=== PATIENT | male | born 1960 | race Caucasian/White ===

== ENCOUNTER → 2022-10-05 12:03 | Day surgery (SDC) | payer MEDICARE, MEDICAID, SELFPAY ==
[2022-10-05 12:48] VITALS: BMI 25.9
[2022-10-05 12:57] VITALS: BP 95/69; PULSE 79; RESP 20; TEMP 36.9; O2SAT 96
[2022-10-05] MEDS: Lactated Ringers 1,000 ML 50 ML IVCONT (13:24)
--- NOTE | 2022-10-05 13:24 | HO.ANESPROP2 ---
HPI - Anesthesia Eval Consult details Narrative: 62 yo male patient for fiberoptic bronchoscopy with biopsy. While talking to patient, HR increased to 140s and patient felt hot and flushed. Unable to ascertain rhythm but P waves do not appear to be always present. Will obtain 12 lead EKG. PMFSH Past Medical History Medical History Abnormal liver function Chronic back pain Chronic hip pain COPD (chronic obstructive pulmonary disease) Depression screening H/O ETOH abuse Hematochezia Prostate troubles Tobacco use Family History Family history of problems with anesthesia: No Surgical History Surgical History (Updated 10/05/22 @ 14:37 by Theodora Bains MD) H/O foot surgery History of Problems with Anesthesia: Yes (Difficulty breathing waking up from anesthesia. Needed oxygen ) Social History Social History Patient Tobacco Use Status: Current everyday Tobacco user Tobacco use type: Cigarette Cigarettes Per Day: 7 Use of substances other than those prescribed or required for medical reasons: No Are you DNR?: No Advance Directives: No Advance Directives Information Provided: Yes Recently lost weight without trying: No Nutrition Risks: No Nutritional Risk Meds Allergies Allergy/AdvReac Type Severity Reaction Status Date / Time Penicillins [PCN] Allergy Unknown Verified 10/04/22 10:47 Active Medications: Current Medications Lactated Ringer's (Lr) 1,000 mls @ 50 mls/hr IVCONT .Q20H STEVE Last Admin: 10/05/22 13:24 Dose: 50 mls/hr Home Medications Medication Instructions Recorded Confirmed Last Taken Type acetylcysteine 600 mg capsule 600 mg PO BID 10/04/22 10/04/22 Unknown History albuterol sulfate 90 mcg/actuation 2 puff inhalation Q3H PRN dyspnea 10/04/22 10/04/22 10/05/22 History aerosol inhaler (Ventolin HFA) azithromycin 250 mg tablet 250 mg PO DAILY 10/04/22 10/04/22 Unknown History budesonide-formoterol HFA 160 2 puff inhalation BID 10/04/22 10/04/22 10/05/22 History mcg-4.5 mcg/actuation aerosol inhaler (Symbicort) cholecalciferol (vitamin D3) 50 50 mcg PO DAILY 10/04/22 10/04/22 Unknown History mcg (2,000 unit) capsule fluticasone propionate 50 1 spray intranasal DAILY 10/04/22 10/04/22 10/05/22 History mcg/actuation nasal spray,suspension ipratropium 20 mcg-albuterol 100 1 puff inhalation 8XD sob 10/04/22 10/05/22 10/05/22 History mcg/actuation mist for inhalation (Combivent Respimat) lisinopril 2.5 mg tablet 2.5 mg PO DAILY 10/04/22 10/04/22 Unknown History metoprolol succinate 25 mg 25 mg PO DAILY 10/04/22 10/04/22 10/05/22 History tablet,extended release 24 hr nicotine 21 mg/24 hr daily 1 patch topical DAILY 10/04/22 10/04/22 Unknown History transdermal patch prednisone 10 mg tablet 10 mg PO BID 10/04/22 10/04/22 Unknown History roflumilast 500 mcg tablet mcg PO 10/04/22 10/05/22 History tiotropium bromide 18 mcg capsule 1 cap inhalation DAILY 10/04/22 10/04/22 10/05/22 History with inhalation device (Spiriva with HandiHaler) topiramate 25 mg tablet 25 mg PO BID 10/04/22 10/04/22 10/05/22 History Exam Exam Date and Time: October 05, 2022 1324 Height,Weight and Vital Signs: Height 5 ft 9 in Weight 79.832 kg Last Vital Signs Temp 98.5 F 10/05/22 12:57 Pulse 79 10/05/22 12:57 Resp 20 10/05/22 12:57 BP 95/69 10/05/22 12:57 Pulse Ox 96 10/05/22 12:57 O2 Del Method Room Air 10/05/22 12:57 Airway Mallampati Class: II TM Dist: >3cm Neck ROM: Full Loose/Missing/Broken Teeth: No (Denies broken, loose, missing teeth) Heart: Irregularly irregular Lungs: CTAB. Diminished Assessment and Plan Assessment Anesthesia Assessment: Anesthesia Plan Discussed and Chart Reviewed Final Anesthetic Review Family History of Problems with Anesthesia: No History of Problems with Anesthesia: Yes (Difficulty breathing waking up from anesthesia. Needed oxygen ) NPO: Yes ASA Class: III Final Preanesthetic Review: No Changes in Pt Med Stat, Meds/Allgs Chart Reviewed, Consent Obtained/Reviewed and Anes Risks/Benef Reviewed Patient Risk: Intermediate Procedure Risk: Low Assessment/Block/Sedation in SS: Assess/Block/Sedation-SS Anesthetic Plan Anesthetic Plan: GA Disposition: Standard PACU
--- NOTE | 2022-10-05 13:39 | ECG_ITS ---
Test Reason : PREOP Blood Pressure : / mmHG Vent. Rate : 099 BPM Atrial Rate : 000 BPM P-R Int : 000 ms QRS Dur : 092 ms QT Int : 338 ms P-R-T Axes : 000 109 010 degrees QTc Int : 433 ms Atrial fibrillation Rightward axis Possible Anterior infarct , age undetermined Abnormal ECG When compared with ECG of 24-JUL-2011 09:14, Atrial fibrillation has replaced Sinus rhythm QRS axis Shifted right Borderline criteria for Anterior infarct are now Present Nonspecific T wave abnormality now evident in Inferior leads Referred By: Theodora Bains Electronically Signed By:Kristopher Chairez
--- NOTE | 2022-10-05 13:40 | PC.NURSE ---
WHILE PATIENT WAS SITTING UP IN BED AT REST HIS HEART RATE INCREASED TO 142 ST. DENIES CP. PATIENT FELT LIKE HE GOT REALLY HOT WHILE HE WAS AT REST IN ST. NONDIAPHORETIC. ALERT AND AWAKE. EKLG CALLED TO BE DONE BY THE BEDSIDE. MD MCMILLAN BY BEDSIDE WHEN PATIENT WAS HAVING HIS ST EPISODE/.
[2022-10-05 13:42] VITALS: BP 101/67; PULSE 104; RESP 20; O2SAT 96
--- NOTE | 2022-10-05 13:44 | MHC.SHP ---
Pre-Procedural Eval Section A Date of Service: 10/05/22 The patient is an INPATIENT: No Section B Chief Complaint: Solitary pulmonary nodule Allergies: Allergies Allergy/AdvReac Type Severity Reaction Status Date / Time Penicillins [PCN] Allergy Unknown Verified 10/04/22 10:47 Plan I have reviewed the history and physical and performed a pertinent physical examination on my patient. No changes have occurred unless specified. Plan for bronchoscopy with biopsy. Discussed risks, benefits, and alternatives with the patient which he understood and agreed to proceed. Time Spent With Patient Time: Total time managing care of this patient today ____ minutes.
--- NOTE | 2022-10-05 14:19 | PC.NURSE ---
PATIENT IS NEW ONSET AFIB. ASYMPTOMATIC A THIS TIME. DOC TO DOC REPORT IS TO OCCUR. CALLED ER FOR TRANSFER AWAITING FOR CALL BACK.
--- NOTE | 2022-10-05 14:25 | PC.NURSE ---
PATIENT WAS SITTING UP IN BED AND THEN HAD A FLUSHED FACE AND FELT WARM AND HIS HEART RATE WENT UP TO 136 A-FIB. THEN HEART RATE DECREASED AND HE NO LONGER FELT SYMPTOMATIC WITH FLUSHING FEELING ONLY. REMAINS ALERT AND AWAKE. GAVE NURSE TO NURSE REPORT TO JEANETTE QUILES. TO GO TO BED 4.
--- NOTE | 2022-10-05 14:37 | PC.NURSE ---
OFF UNIT TO ER MONITORED. DOC TO DOC PERFORMED.
== END ==
PROVIDERS: PCP Nurse Practitioner Family; Visit Provider Surgery
DX: R91.1 Solitary pulmonary nodule (principal); Z53.09 Procedure and treatment not carried out because of other contraindication; I48.91 Unspecified atrial fibrillation
CPT/HCPCS: 93005; J0171

== ENCOUNTER 2022-10-05 14:52 | Emergency (ER) | payer MEDICARE, MEDICAID, SELFPAY ==
[2022-10-05 14:58] VITALS: BP 113/67; PULSE 78; RESP 18; TEMP 36.8; O2SAT 96; BMI 25.9
--- NOTE | 2022-10-05 14:58 | ECG_ITS ---
Test Reason : AFIB Blood Pressure : / mmHG Vent. Rate : 076 BPM Atrial Rate : 076 BPM P-R Int : 162 ms QRS Dur : 082 ms QT Int : 368 ms P-R-T Axes : 078 112 047 degrees QTc Int : 414 ms Normal sinus rhythm Possible Left atrial enlargement Right axis deviation Septal infarct (cited on or before 05-OCT-2022) Abnormal ECG When compared with ECG of 05-OCT-2022 13:51, Sinus rhythm has replaced Atrial fibrillation Questionable change in initial forces of Anterior leads Nonspecific T wave abnormality no longer evident in Inferior leads Referred By: Generic ED Physician Electronically Signed By:Kristopher Chairez
--- NOTE | 2022-10-05 15:18 | ED_ITS ---
HPI - Arrhythmia/Palpitations General Chief Complaint: Arrhythmia/Palpitations Stated Complaint: AFib? Time Seen by Provider: 10/05/22 15:17 Source: patient and other Mode of arrival: ambulatory Limitations: no limitations History of Present Illness HPI narrative: 62 yo male with history of COPD, active smoker, with a newly diagnosed lung mass who presents to the ER from Short Stay Surgery for evaluation of new onset rapid atrial fibrillation. Patient was due to get a bronchoscopy today by Dr. Isbell when EKG done pre-op showed atrial fibrillation, HR 99. He was flushed at the time. Not short of breath or having any chest pain. This has resolved. He was brought to the ER where he was found to be back in normal sinus rhythm. HR 80s. BP 110/60s. He was asymptomatic. He states about 5 years ago he used to drink alcohol when he had a similar experience. He states he went MD complaint: atrial fibrillation Onset (ago): minute(s) Duration: now resolved Severity: moderate Associated symptoms: denies other symptoms Related Data Home Medications Medication Instructions Recorded Confirmed acetylcysteine 600 mg capsule 600 mg PO BID 10/04/22 10/04/22 albuterol sulfate 90 mcg/actuation 2 puff inhalation Q3H PRN dyspnea 10/04/22 10/04/22 aerosol inhaler (Ventolin HFA) azithromycin 250 mg tablet 250 mg PO DAILY 10/04/22 10/04/22 budesonide-formoterol HFA 160 2 puff inhalation BID 10/04/22 10/04/22 mcg-4.5 mcg/actuation aerosol inhaler (Symbicort) cholecalciferol (vitamin D3) 50 50 mcg PO DAILY 10/04/22 10/04/22 mcg (2,000 unit) capsule fluticasone propionate 50 1 spray intranasal DAILY 10/04/22 10/04/22 mcg/actuation nasal spray,suspension ipratropium 20 mcg-albuterol 100 1 puff inhalation 8XD sob 10/04/22 10/05/22 mcg/actuation mist for inhalation (Combivent Respimat) lisinopril 2.5 mg tablet 2.5 mg PO DAILY 10/04/22 10/04/22 metoprolol succinate 25 mg 25 mg PO DAILY 10/04/22 10/04/22 tablet,extended release 24 hr nicotine 21 mg/24 hr daily 1 patch topical DAILY 10/04/22 10/04/22 transdermal patch prednisone 10 mg tablet 10 mg PO BID 10/04/22 10/04/22 roflumilast 500 mcg tablet mcg PO 10/04/22 tiotropium bromide 18 mcg capsule 1 cap inhalation DAILY 10/04/22 10/04/22 with inhalation device (Spiriva with HandiHaler) topiramate 25 mg tablet 25 mg PO BID 10/04/22 10/04/22 Previous Rx's Medication Instructions Recorded metoprolol succinate 25 mg 25 mg PO DAILY #30 tabs 10/05/22 tablet,extended release 24 hr Allergies Allergy/AdvReac Type Severity Reaction Status Date / Time Penicillins [PCN] Allergy Unknown Verified 10/04/22 10:47 Review of Systems Review of Systems: Yes all other systems are reviewed and are negative [facility] Past Medical History Medical History Abnormal liver function Chronic back pain Chronic hip pain COPD (chronic obstructive pulmonary disease) Depression screening H/O ETOH abuse Hematochezia Prostate troubles Tobacco use Surgical History (Updated 10/05/22 @ 14:37 by Thoedora Bains MD) H/O foot surgery Social History Social History Patient Tobacco Use Status: Current everyday Tobacco user Tobacco use type: Cigarette Cigarettes Per Day: 7 Advance Directives: No Advance Directives Information Provided: Yes Physical Exam Vital Signs: Vital Signs: Last Vital Signs Temp 98.2 F 10/05/22 14:58 Pulse 78 10/05/22 14:58 Resp 18 10/05/22 14:58 BP 113/67 10/05/22 14:58 Pulse Ox 96 10/05/22 14:58 O2 Del Method Room Air 10/05/22 14:58 BMI result Body Mass Index 25.9 Appearance: Alert. Oriented X3. No acute distress. Head: normocephalic, atraumatic. Eyes: Pupils equal, round and reactive to light. ENT: Pharynx normal. No tonsillar swelling or exudate. Neck: Normal inspection. Neck supple. CVS: Normal heart rate and rhythm. Pulses normal. Respiratory: No respiratory distress. Breath sounds normal. Abdomen: Soft and nontender. +BS x4 Skin: Skin warm and dry. Normal skin color. Normal skin turgor. No rashes. Extremities: No lower extremity edema. No joint swelling. Neuro/psych: Oriented X 3. No motor deficit. No sensory deficit. CN II-XII intact. Normal speech and cognition. Course Reevaluation(s) Reevaluation #1: Remains in sinus rhythm. Seen by Cardiology. Stable for discharge home. Will not start anticoagulation did not his hemoptysis Medical Decision Making Medical Decision Making [facility] Narrative: 62-year-old male with history of COPD, lung mass was given get bronchoscopy today found to be in new onset rapid AFib. He cardioverted on his own and is normal sinus rhythm on arrival to the ER. He is hemodynamically stable and symptom-free. He states when he felt himself going to AFib he felt ?flushed. ? no chest pain or shortness of breath time. Patient was seen and evaluated by Cardiology in the emergency department by - recommending no anticoagulation given recent hemoptysis, stopping the low-dose lisinopril and increase thing the Toprol XL to 25 mg b.i.d.. This was discussed with the patient in detail, all questions were answered. Additional prescription for his Toprol XL was sent to his pharmacy. He will follow up with Cardiology in the office, thoracic surgery for rescheduling his bronchoscopy. He is due for a PET scan as an outpatient as well. He is stable for discharge home. Return precautions were discussed. Differential Diagnosis Differential Diagnoses: The differential diagnosis associated with the presentation includes Paroxysmal rapid AFib, SVT, multifocal atrial tachycardia, sinus tachycardia Admission/Observation Consideration of admission/observation: Escalation of care including admission/observation considered Considered admission given new onset AFib, however patient spontaneously cardioverted, no role for anticoagulation given his pre-existing condition, has outpatient follow-up. Stable for discharge home. Consult Healthcare Provider Management of the patient was discussed with: Base Ply Hand Dr. Chairez Lab Data [facility] Lab Attestation statement: I reviewed the patient's lab results. Normal electrolytes, troponins negative, not anemic 10/05/22 15:12 10/05/22 15:12 Labs: Lab Results 10/05/22 10/05/22 10/05/22 Range/Units 15:12 15:12 15:12 WBC 8.1 (4.8-10.8) X10*3/uL RBC 4.75 (4.60-5.80) X10*6/uL Hgb 14.6 (14.0-18.0) g/dl Hct 44.0 (42.0-52.0) % MCV 92.6 (80.0-98.0) fL MCH 30.7 (27.0-33.0) pg MCHC 33.2 (31.0-36.0) g/dl RDW 12.6 (11.0-16.0) % Plt Count 227 (160-400) X10*3/uL MPV 9.2 L (9.4-12.4) fL Absolute Nucleated RBC 0.000 (0.0-0.012) X10*3/uL Nucleated RBC % (auto) 0.0 (0.0-0.2) /100WBC Sodium 142 (135-145) mmol/L Potassium 4.4 (3.3-5.1) mmol/L Chloride 105 (96-108) mmol/L Carbon Dioxide 29 (22-29) mmol/L Anion Gap 12 (12-20) BUN 11 (9-16) mg/dL Creatinine 0.72 (0.5-1.4) mg/dL Estim Creat Clear Calc 105.0 Estimated GFR > 60 Random Glucose 85 (60-115) mg/dL Calcium 9.5 (8.4-10.2) mg/dL Phosphorus 3.0 (2.7-4.5) mg/dL Magnesium 2.1 (1.6-2.6) mg/dL Troponin I High Sens < 2.7 (<3.5-35.0) ng/L B-Natriuretic Peptide (<100) pg/mL TSH 1.59 (0.32-4.0) uIU/mL COVID-19 ([facility]) (Negative) COVID-19 Clin Com 10/05/22 10/05/22 Range/Units 15:12 15:12 WBC (4.8-10.8) X10*3/uL RBC (4.60-5.80) X10*6/uL Hgb (14.0-18.0) g/dl Hct (42.0-52.0) % MCV (80.0-98.0) fL MCH (27.0-33.0) pg MCHC (31.0-36.0) g/dl RDW (11.0-16.0) % Plt Count (160-400) X10*3/uL MPV (9.4-12.4) fL Absolute Nucleated RBC (0.0-0.012) X10*3/uL Nucleated RBC % (auto) (0.0-0.2) /100WBC Sodium (135-145) mmol/L Potassium (3.3-5.1) mmol/L Chloride (96-108) mmol/L Carbon Dioxide (22-29) mmol/L Anion Gap (12-20) BUN (9-16) mg/dL Creatinine (0.5-1.4) mg/dL Estim Creat Clear Calc Estimated GFR Random Glucose (60-115) mg/dL Calcium (8.4-10.2) mg/dL Phosphorus (2.7-4.5) mg/dL Magnesium (1.6-2.6) mg/dL Troponin I High Sens (<3.5-35.0) ng/L B-Natriuretic Peptide 40 (<100) pg/mL TSH (0.32-4.0) uIU/mL COVID-19 ([facility]) Negative (Negative) COVID-19 Clin Com See Note Independent Interpretation I performed an independent interpretation of an: EKG Interpretation: EKG @ 15:02 - normal sinus rhythm, ventricular rate 76 beats per minute, no ST segment elevations or depressions. Normal [place] interval. EKG @ 13:51 - atrial fibrillation, ventricular rate 99 beats per minute, no P waves appreciated. No ST segment elevations or depressions. Independent Historian Clinical information obtained from an independent historian. History obtained from or confirmed by: Spouse Prescription Management I considered prescription management with: Other (betablocker) Chronic Conditions Patient?s care impacted by: Other (COPD, smoker) Critical Care Time Critical Care Time Critical Care Time: No Discharge Plan Discharge Clinical Impression: PAF (paroxysmal atrial fibrillation) Patient Disposition: Home, Self-Care Instructions: A-fib (Atrial Fibrillation) (DC) Additional Instructions: STOP taking your Lisinopril Recommending taking your Metoprolol 25 mg two times per day. Additional prescription as been sent to his pharmacy Take one pill in the morning and one in the evening Follow up with Cardiology for further workup and management If you develop new or worsening symptoms call 911 or come back to the ER for further evaluation. Prescriptions: New metoprolol succinate 25 mg tablet extended release 24 hr 25 mg PO DAILY Qty: 30 0RF No Action prednisone 10 mg tablet 10 mg PO BID azithromycin 250 mg tablet 250 mg PO DAILY topiramate 25 mg tablet 25 mg PO BID nicotine 21 mg/24 hr patch 24 hour 1 patch topical DAILY metoprolol succinate 25 mg tablet extended release 24 hr 25 mg PO DAILY albuterol sulfate [Ventolin HFA] 90 mcg/actuation HFA aerosol inhaler 2 puff INHALATION Q3H PRN (Reason: dyspnea) fluticasone propionate 50 mcg/actuation spray,suspension 1 spray intranasal DAILY lisinopril 2.5 mg tablet 2.5 mg PO DAILY Spiriva with HandiHaler 18 mcg capsule, w/inhalation device 1 cap inhalation DAILY acetylcysteine 600 mg capsule 600 mg PO BID budesonide-formoterol [Symbicort] 160-4.5 mcg/actuation HFA aerosol inhaler 2 puff inhalation BID cholecalciferol (vitamin D3) 50 mcg (2,000 unit) capsule 50 mcg PO DAILY roflumilast 500 mcg tablet PO Combivent Respimat 20-100 mcg/actuation mist 1 puff inhalation 8XD Referrals: [facility] [place] Cardiovascular Services [Provider Group] (New onset paroxysmal rapid AFib, seen in the ER) Interventions: ED Discharge Assessment Last Done: 10/05/22 16:21 Discharge Date/Time: 10/05/22 16:22
[2022-10-05 15:22] LABS: Hemoglobin 14.6 g/dl (14.0-18.0); Mean Corpuscular HGB Conc 33.2 g/dl (31.0-36.0); Mean Corpuscular Hemoglobin 30.7 pg (27.0-33.0); Mean Corpuscular Volume 92.6 fL (80.0-98.0); Mean Platelet Volume 9.2 fL (9.4-12.4); Platelet Count 227 X10*3/uL (160-400); Red Blood Count 4.75 X10*6/uL (4.60-5.80); Red Cell Distribution Width 12.6 % (11.0-16.0); White Blood Count 8.1 X10*3/uL (4.8-10.8)
[2022-10-05 15:36] LABS: Anion Gap 12 (12-20); Blood Urea Nitrogen 11 mg/dL (9-16); Calcium 9.5 mg/dL (8.4-10.2); Carbon Dioxide 29 mmol/L (22-29); Chloride 105 mmol/L (96-108); Estimated Glomerular Filt Rate > 60; Glucose Random 85 mg/dL (60-115); Potassium 4.4 mmol/L (3.3-5.1); Sodium 142 mmol/L (135-145)
[2022-10-05 15:38] LABS: COVID-19 Test Negative (Negative); IDNOW Serial# 08D9AD1C
[2022-10-05 15:44] LABS: B Type Natriuretic Peptide 40 pg/mL (<100)
[2022-10-05 15:47] LABS: Troponin-I High Sensitivity < 2.7 ng/L (<3.5-35.0)
[2022-10-05 15:54] LABS: Magnesium 2.1 mg/dL (1.6-2.6)
--- OUTSIDE RECORDS SUMMARY | 2022-10-05 15:56 | XMS_ITS | Continuity of Care Document ---
Author Name Unknown Organization [facility] Address [address] [place] [address]- Care Team Providers Care Retail Agent Name Role Phone Not on Staff, PCP Primary Care Physician Unavail able Encounter [facility] Date(s): 04/04/22 - 05/04/22 [facility] [address] [place] [address]- Attending Physician: Manoj San Admitting Physician: Manoj San Referring Physician: Manoj San Allergies, Adverse Reactions, Alerts Substance Reaction Severity Status penicillin Active Immunizations Given and Recorded Vaccine Date Status Refusal Reason pneumococcal 23-valent vaccine 1 03/04/18 Given influenza virus vaccine, inactivated 2 03/20/12 Gi vandana tetanus/diphtheria/pertussis, acel(Tdap) 12/23/11 Given 1Result Comment: [id number] 04/23/2019 2Admin Note: vis 7-7-12 Medications lisinopril 5 mg oral tablet 5 mg, 1, tablet, By Mouth, Daily, Maintenance, 02/26/18 8:35:18 EDT Start Date: 02/26/18 Status: Ordered metoprolol 25 mg oral tablet, extended release 25 mg, 1, tablet, By Mouth, Daily, Refills 0, Maintenance, 08/14/16 13:11:12 Start Date: 08/14/16 Status: Ordered nicotine 21 mg/24 hr transdermal film, extended release 1 patch, Topically, Daily, # 30 patch, 1 Refills, Maintenance, 03/04/18 16:18:58 EDT, Patch, 1 patch Topically Daily Start Date: 03/04/18 Status: Ordered Spiriva = 18 mcg, Inhalation, Daily, 0 Refills, Maintenance, 07/04/20 11:43:00 EST, Partial fill upon patient request if the prescription is for a schedule II opioid drug. Start Date: 07/04/20 Status: Ordered Stiolto Respimat 2.5 mcg-2.5 mcg inhalation aerosol 2 puffs, Inhalation, Every 24 hours, # 60 inhalation, 5 Refills, Maintenance, 03/04/18 16:18:09 EDT, Aerosol Start Date: 03/04/18 Status: Ordered Ventolin 90 mcg Inhaler 2, puffs, Inhalation, 4 times a day, Refills 0, Maintenance, 08/14/16 13:14:52 Start Date: 08/14/16 Status: Ordered Vitamin D3 2000 intl units oral capsule 1 capsule = 2,000 International_Units, By Mouth, Daily Start Date: 02/26/18 Status: Ordered Problem List Condition Confirmation Course Effective Dates Status Health St atus Informant Ankle pain, right 1 Confirmed Active Arthritis Confirmed Active COPD Confirmed Active Foot pain, right Confirmed Active Knee pain, bilateral Confirmed Active Left low back pain Confirmed 05/14/12 Active Abnormal liver function test Confirmed Active Tobacco Use Disorder Confirmed 09/18/12 Active 1Status post surgery on the right ankle and screws were placed. Social History Social History Type Response Smoking Status Current every day mahesh william; Tobacco user in household: No; Type: Cigarettes; Other: 1/2 ppd to 1ppd; entered on: 08/14/16 Sex Patient Care team information Personnel Name: Not on Staff, PCP
--- OUTSIDE RECORDS SUMMARY | 2022-10-05 15:56 | XMS_ITS | Continuity of Care Document ---
Author Name Unknown Organization [facility] Address [address] [place] [address]- Care Team Providers Care Prevention Coordinator Name Role Phone Monserrat WHITMORE, Candice Primary Care Physician Encounter 10/10/21 - 12/14/21 [facility] [address], [address] [place] [address]- Attending Physician: Vinay Deal MD Admitting Physician: Vinay Deal MD Referring Physician: Vinay Deal MD Allergies, Adverse Reactions, Alerts Substance Reaction Severity Status penicillin Active Immunizations Given and Recorded Vaccine Date Status Refusal Reason pneumococcal 23-valent vaccine 1 03/04/18 Given influenza virus vaccine, inactivated 2 03/20/12 Gi vandana tetanus/diphtheria/pertussis, acel(Tdap) 12/23/11 Given 1Result Comment: [id number] 04/23/2019 2Admin Note: vis 7-7-12 Medications lisinopril [...] Date: 02/26/18 Status: Ordered Problem List Condition Effective Dates Status Health Status Inform ant Ankle pain, right(Confirmed) 1 Active Arthritis(Confirmed) Active COPD(Confirmed) Active Foot pain, right(Confirmed) Active Knee pain, bilateral(Confirmed) Active Left low back pain(Confirmed) 05/14/12 Active Abnormal liver function test(Confirmed) Active Tobacco Use Disorder(Confirmed) 09/18/12 Active 1Status post surgery on the right ankle and screws were placed. Social History Social History Type Response Smoking Status Current every day mahesh william; Tobacco user in household: No; Type: Cigarettes; Other: 1/2 ppd to 1ppd; entered on: 08/14/16 Sex
--- OUTSIDE RECORDS SUMMARY | 2022-10-05 15:56 | XMS_ITS | Continuity of Care Document ---
Author Name Unknown Organization [facility] Address [address] [place] [address]- Care Team Providers Care Fish Fryer Name Role Phone Not on Staff, PCP Primary Care Physician Unavail able Encounter [facility] [id number] Date(s): 04/04/22 - 04/11/22 [facility] [address] [place] [address]- Attending Physician: Samuel Avalos MD Allergies, Adverse Reactions, Alerts Substance Reaction Severity Status penicillin Active Immunizations Given and Recorded Vaccine Date Status Refusal Reason pneumococcal 23-valent vaccine 1 03/04/18 Given influenza virus vaccine, inactivated 2 03/20/12 Gi vandana tetanus/diphtheria/pertussis, acel(Tdap) 12/23/11 Given 1Result Comment: [id number] 04/23/2019 2Admin Note: vis 7-7-12 Medications lisinopril [...] Type Response Smoking Status Current every day sm oker; Tobacco user in household: No; Type: Cigarettes; Other: 1/2 ppd to 1ppd; entered on: 08/14/16 Sex Patient Care team information Personnel Name: Not on Staff, PCP
--- OUTSIDE RECORDS SUMMARY | 2022-10-05 15:56 | XMS_ITS | Continuity of Care Document ---
Author Name Unknown Organization [facility] Address [address] [place] [address]- Care Team Providers Care Wire Tester Name Role Phone Monserrat WHITMORE, Candice Primary Care Physician Encounter [facility] NBR [id number] Date(s): 11/03/21 - 12/03/21 [facility] [address] [place] [address]- Allergies, Adverse Reactions, Alerts Substance Reaction Severity Status penicillin Active Immunizations Given and Recorded Vaccine Date Status Refusal Reason pneumococcal 23-valent vaccine 1 03/04/18 Given influenza virus vaccine, inactivated 2 03/20/12 Gi vandana tetanus/diphtheria/pertussis, acel(Tdap) 12/23/11 Given 1Result Comment: [id number] 04/23/2019 2Admin Note: vis 7-7-12 Medications lisinopril [...]
--- OUTSIDE RECORDS SUMMARY | 2022-10-05 15:56 | XMS_ITS | Continuity of Care Document ---
Author Name Unknown Organization [facility] [place] Address [address] [place] [address]- Care Team Providers Care Cross Tie Cutter Name Role Phone Candice German NP Primary Care Physician Encounter [facility] Date(s): 11/23/21 - 02/08/22 [facility] [place] [address] [place] [address]- Attending Physician: Henny Booth MD Referring Physician: Candice German NP Allergies, Adverse Reactions, Alerts Substance Reaction Severity Status penicillin Active Immunizations Given and Recorded Vaccine Date Status Refusal Reason pneumococcal 23-valent vaccine 1 03/04/18 Given influenza virus vaccine, inactivated 2 03/20/12 Gi vandana tetanus/diphtheria/pertussis, acel(Tdap) 12/23/11 Given 1Result Comment: [id number] 04/23/2019 2Admin Note: vis 7-7-12 Medications lisinopril [...]
--- OUTSIDE RECORDS SUMMARY | 2022-10-05 15:56 | XMS_ITS | Continuity of Care Document ---
Author Name Unknown Organization [facility] Address [address] [place] [address] [address] [place] [address]- Care Team Providers Care Pillowcase Cleaner Name Role Phone Candice German NP Primary Care Physician [place] [facility] [place] 12/30/21 [facility] [address] [place] [address] Drive [address] [place], [place] [address] Attending Physician: Admbrendan, Robert8 Admitting Physician: Admtr, Manoj Referring Physician: Admtr, Ar8 Allergies, Adverse Reactions, Alerts Substance Reaction Severity Status penicillin Active Immunizations Given and Recorded Vaccine Date Status Refusal Reason pneumococcal 23-valent vaccine 1 03/04/18 Given influenza virus vaccine, inactivated 2 03/20/12 Gi vandana tetanus/diphtheria/pertussis, acel(Tdap) 12/23/11 Given 1Result Comment: [id number] 04/23/2019 2Admin Note: vis 7-7-12 Medications lisinopril [...]
--- OUTSIDE RECORDS SUMMARY | 2022-10-05 15:56 | XMS_ITS | Continuity of Care Document ---
Author Name Unknown Organization [facility] Address [address] [place] [address]- Care Team Providers Care Color Receiver Name Role Phone Candice German NP Primary Care Physician Encounter [facility] NBR [id number] Date(s): 07/04/20 - 07/04/[address] [address]- Discharge Disposition: A-D/C Home Attending Physician: Al Duvall MD Admitting Physician: Al Duvall MD Referring Physician: Not on Staff, Referring MD Allergies, Adverse Reactions, Alerts Substance Reaction Severity Status penicillin Active Immunizations Given and Recorded Vaccine Date Status Refusal Reason pneumococcal 23-valent vaccine 1 03/04/18 Given influenza virus vaccine, inactivated 2 03/20/12 Gi vandana tetanus/diphtheria/pertussis, acel(Tdap) 12/23/11 Given 1Result Comment: [id number] 04/23/2019 2Admin Note: vis 7-7-12 Medications lisinopril [...] the right ankle and screws were placed. Results Radiology Reports * Exam Date Time Procedure Performing Provider Status 07/04/20 12:23 PM Foot Min 3 Views Right Virginia Mcgarry; Auth (Verified) Notes: (Foot Min 3 Views Right) Reason For Exam: with Pain;Trauma RESULT: Foot Min 3 Views Right Foot Min 3 Views Right, 3 views Hx of Present Illness: ruptured achilles tendon in 2012., had surgery. Foot started swelling 4 months ago then got better. Started swelling again 5 days ago.; Reason: Trauma; with Pain; Clinical Question(s): Fracture COMPARISON: 12/26/2015. FINDINGS: No fractures or bone lesions. Subtalar fusion changes are again noted with the pes planus deformity and small calcaneal spurs. There are mild degenerative changes in the tibiotalar joint. Moderate degenerative changes in the midfoot. There is moderate soft tissue prominence. IMPRESSION: No acute osseous abnormality. Instrumented fusion changes without evidence of hardware fracture or complication. Pes planus deformity with underlying degenerative changes largely unchanged. WSN: [id number] Ordering Physician: Al Duvall Dictated By: Yayo Womack MD Dictated Date/Time: 07/04/20 12:36 p Reviewed By: Yayo Womack MD Signed By: Yayo Womack MD Signed Date/Time: 07/04/20 12:36 pm Transcribed By: FELICE Transcribed Date/Time: 07/04/20 12:34 pm Vital Signs Most recent to oldest [Reference Range]: 1 Height 175 cm (07/04/20 11:39 AM) Weight 107 kg (07/04/20 11:39 AM) Oxygen Saturation [94-100 %] 98 % (07/04/20 11:39 AM) Pulse Rate [55-90 bpm] 89 bpm (07/04/20 11:39 AM) Blood Pressure [90-138/55-84 mm Hg] 147/ 71mm Hg *H* (07/04/20 11:39 AM) Respiratory Rate [16-30 br/min] 16 br/mi n (07/04/20 11:39 AM) Temperature [96.8-100.4 DegF] 98.5 DegF (07/04/20 11:39 AM) Mode of Delivery (Oxygen) Room air (07/04/20 11:39 AM) Blood pressure sites Arm, left (07/04/20 11:39 AM) Temperature Route Temporal (07/04/20 11:39 AM) Dry Weight 107 kg (07/04/20 11:39 AM) Weight Obtained Via Patient/family state d (07/04/20 11:39 AM) Dry Weight Obtained Via Patient/family s tated (07/04/20 11:39 AM) Social History Social History Type Response Smoking Status Current every day sm oker; Tobacco user in household: No; Type: Cigarettes; Other: 1/2 ppd to 1ppd; entered on: 08/14/16 Sex
--- OUTSIDE RECORDS SUMMARY | 2022-10-05 15:56 | XMS_ITS | Continuity of Care Document ---
Author Name Unknown Organization [facility] Address [address] [place] [address] [address] [place] [address]- Care Team Providers Care Industrial Roof Plumber Name Role Phone Candice German NP Primary Care Physician [place] [facility] [place] 11/22/21 - 12/30/21 [facility] [address] [place] [address] Drive [address] [place], [place] [address] Attending Physician: Alaina Lino Referring Physician: Candice German NP Allergies, Adverse Reactions, Alerts Substance Reaction Severity Status penicillin Active Immunizations Given and Recorded Vaccine Date Status Refusal Reason pneumococcal 23-valent vaccine 1 03/04/18 Given influenza virus vaccine, inactivated 2 03/20/12 Gi vandana tetanus/diphtheria/pertussis, acel(Tdap) 12/23/11 Given 1Result Comment: [id number] 04/23/2019 2Admin Note: vis 7-7-12 Medications lisinopril [...]
--- OUTSIDE RECORDS SUMMARY | 2022-10-05 15:56 | XMS_ITS | Continuity of Care Document ---
Author Name Unknown Organization [facility] [place] Address [address] [place] [address]- Care Team Providers Care Mental Health Technician Name Role Phone Candice German NP Primary Care Physician [phone] Encounter [facility] Date(s): 01/09/22 - 02/08/22 [facility] [place] [address] [place], [place] [address] Attending Physician: Manoj San Admitting Physician: Manoj San Referring Physician: AdmtrManoj Allergies, Adverse Reactions, Alerts Substance Reaction Severity Status penicillin Active Immunizations Given and Recorded Vaccine Date Status Refusal Reason pneumococcal 23-valent vaccine 1 03/04/18 Given influenza virus vaccine, inactivated 2 03/20/12 Gi vandana tetanus/diphtheria/pertussis, acel(Tdap) 12/23/11 Given 1Result Comment: [id number] 04/23/2019 2Admin Note: vis 7-7-12 Medications lisinopril [...]
--- OUTSIDE RECORDS SUMMARY | 2022-10-05 15:56 | XMS_ITS | Continuity of Care Document ---
Author Name Unknown Organization [facility] Address [address] [place] [address]- Care Team Providers Care Machine Maintenance Name Role Phone Candice German NP Primary Care Physician Encounter [facility] Date(s): 08/30/20 - 11/02/[address] [address]- Attending Physician: Candice German NP Admitting Physician: Candice German NP Referring Physician: Candice German NP Allergies, Adverse Reactions, Alerts Substance Reaction Severity Status penicillin Active Immunizations Given and Recorded Vaccine Date Status Refusal Reason pneumococcal 23-valent vaccine 1 03/04/18 Given influenza virus vaccine, inactivated 2 03/20/12 Gi vandana tetanus/diphtheria/pertussis, acel(Tdap) 12/23/11 Given 1Result Comment: [id number] 04/23/2019 2Admin Note: vis 7-7-12 Medications lisinopril [...]
[2022-10-05 16:15] LABS: TSH reflex Free T4 1.59 uIU/mL (0.32-4.0)
--- NOTE | 2022-10-05 18:00 | PM.CNCAR ---
History of Present Illness History of Present Illness Date of Service: 10/05/22 Requesting physician: Lizzie Pierce Chief complaint: AFib Narrative: 62-year-old gentleman who came for bronchoscopy and developed AFib with RVR. He has a lung mass and need biopsy. He has been experiencing hemoptysis. He was fairly asymptomatic from AFib point of view but was sent to the emergency department. In the ER he reverted back to sinus rhythm. He is currently back in sinus and is doing well. He denied any symptoms other than exertion shortness of breath and is currently an active smoker. No chest pains. He has background of hypertension and has been taking lisinopril and Toprol XL. [facility] Past Medical History Medical History Abnormal liver function Chronic back pain Chronic hip pain COPD (chronic obstructive pulmonary disease) Depression screening H/O ETOH abuse Hematochezia Prostate troubles Tobacco use Surgical History Surgical History (Updated 10/05/22 @ 14:37 by Theodora Bains MD) H/O foot surgery Social History Social History Patient Tobacco Use Status: Current everyday Tobacco user Tobacco use type: Cigarette Cigarettes Per Day: 7 Advance Directives: No Advance Directives Information Provided: Yes Meds Allergies Allergy/AdvReac Type Severity Reaction Status Date / Time Penicillins [PCN] Allergy Unknown Verified 10/04/22 10:47 Home Medications Medication Instructions Recorded Confirmed Last Taken Type acetylcysteine 600 mg capsule 600 mg PO BID 10/04/22 10/04/22 Unknown History albuterol sulfate 90 mcg/actuation 2 puff inhalation Q3H PRN dyspnea 10/04/22 10/04/22 10/05/22 History aerosol inhaler (Ventolin HFA) azithromycin 250 mg tablet 250 mg PO DAILY 10/04/22 10/04/22 Unknown History budesonide-formoterol HFA 160 2 puff inhalation BID 10/04/22 10/04/22 10/05/22 History mcg-4.5 mcg/actuation aerosol inhaler (Symbicort) cholecalciferol (vitamin D3) 50 50 mcg PO DAILY 10/04/22 10/04/22 Unknown History mcg (2,000 unit) capsule fluticasone propionate 50 1 spray intranasal DAILY 10/04/22 10/04/22 10/05/22 History mcg/actuation nasal spray,suspension ipratropium 20 mcg-albuterol 100 1 puff inhalation 8XD sob 10/04/22 10/05/22 10/05/22 History mcg/actuation mist for inhalation (Combivent Respimat) lisinopril 2.5 mg tablet 2.5 mg PO DAILY 10/04/22 10/04/22 Unknown History metoprolol succinate 25 mg 25 mg PO DAILY 10/04/22 10/04/22 10/05/22 History tablet,extended release 24 hr nicotine 21 mg/24 hr daily 1 patch topical DAILY 10/04/22 10/04/22 Unknown History transdermal patch prednisone 10 mg tablet 10 mg PO BID 10/04/22 10/04/22 Unknown History roflumilast 500 mcg tablet mcg PO 10/04/22 10/05/22 History tiotropium bromide 18 mcg capsule 1 cap inhalation DAILY 10/04/22 10/04/22 10/05/22 History with inhalation device (Spiriva with HandiHaler) topiramate 25 mg tablet 25 mg PO BID 10/04/22 10/04/22 10/05/22 History Physical Exam Vital Signs: Vital Signs: Last Vital Signs Temp 98.2 F 10/05/22 14:58 Pulse 78 10/05/22 14:58 Resp 18 10/05/22 14:58 BP 113/67 10/05/22 14:58 Pulse Ox 96 10/05/22 14:58 O2 Del Method Room Air 10/05/22 14:58 BMI result Body Mass Index 25.9 GENERAL APPEARANCE: in no acute distress, pleasant. NECK: no carotid bruit, no jugular venous distention. SKIN: no suspicious lesions, warm and dry. HEART: no murmurs, regular rate and rhythm. LUNGS: clear to auscultation bilaterally. ABDOMEN: soft, nontender. EXTREMITIES: no edema. PERIPHERAL PULSES: equal. NEUROLOGIC: No gross deficits, AAO X 3 Objective Labs and Meds 10/05/22 15:12 10/05/22 15:12 Lab results: Laboratory Results - last 24 hr 10/05/22 10/05/22 10/05/22 15:12 15:12 15:12 WBC 8.1 RBC 4.75 Hgb 14.6 Hct 44.0 MCV 92.6 MCH 30.7 MCHC 33.2 RDW 12.6 Plt Count 227 MPV 9.2 L Absolute Nucleated RBC 0.000 Nucleated RBC % (auto) 0.0 Sodium 142 Potassium 4.4 Chloride 105 Carbon Dioxide 29 Anion Gap 12 BUN 11 Creatinine 0.72 Estim Creat Clear Calc 105.0 Estimated GFR > 60 Random Glucose 85 Calcium 9.5 Phosphorus 3.0 Magnesium 2.1 Troponin I High Sens < 2.7 B-Natriuretic Peptide TSH 1.59 COVID-19 ([facility]) COVID-19 Clin Com 10/05/22 10/05/22 15:12 15:12 WBC RBC Hgb Hct MCV MCH MCHC RDW Plt Count MPV Absolute Nucleated RBC Nucleated RBC % (auto) Sodium Potassium Chloride Carbon Dioxide Anion Gap BUN Creatinine Estim Creat Clear Calc Estimated GFR Random Glucose Calcium Phosphorus Magnesium Troponin I High Sens B-Natriuretic Peptide 40 TSH COVID-19 ([facility]) Negative COVID-19 Clin Com See Note Assessment and Plan (1) PAF (paroxysmal atrial fibrillation): Status: Acute Plan 62-year-old gentleman with paroxysmal atrial fibrillation. Chads Vasc score is 1. He also has hemoptysis currently. No anticoagulation is indicated currently. Stop the lisinopril and increase her Toprol-XL to 25 mg twice a day. He can go back home and will do further workup as outpatient including echocardiography and cardiac event monitor. He has lung mass with background of active smoking with hemoptysis. I think diagnosis is very important for him and if he comes back from bronchoscopy are team can follow him and can help manage AFib if he develops that during the procedure. But I feel he should undergo the bronchoscopy so we can understand the cause of his mass and treat accordingly. I have discussed with her about smoking cessation. Thank you for allowing me to participate in the care of your patient. Please feel free to contact me if you have any questions. Time Spent With Patient Time: Total time managing care of this patient today ____ minutes. Procedures Date of Service Date of Service: 10/05/22
== END 2022-10-05 16:50 | disposition home or self-care (01) ==
PROVIDERS: Physician Assistant; Emergency Provider Emergency Medicine; PCP Nurse Practitioner Family
DX: I49.9 Cardiac arrhythmia, unspecified (principal); R00.2 Palpitations; I48.91 Unspecified atrial fibrillation; F17.210 Nicotine dependence, cigarettes, uncomplicated; Z20.822 Contact with and (suspected) exposure to COVID-19; Z20.828 Contact with and (suspected) exposure to other viral communicable diseases; Z71.6 Tobacco abuse counseling; Z79.899 Other long term (current) drug therapy
CPT/HCPCS: 80048; 83735; 83880; 84100; 84443; 84484; 85027; 87635; 93005; 99283; J0171

== ENCOUNTER → 2022-10-19 12:48 | Outpatient (REF) | payer MEDICARE, MEDICAID, SELFPAY ==
--- NOTE | 2022-10-19 12:51 | CA_ITS ---
Transthoracic Echocardiogram Patient (Last, First, Middle): Justin Cruz, Gender: Male Date of : 1960 Age: 62 Procedure Date: 10/19/2022 Procedure Type: Transthoracic Echocardiogram Location: OP Height: 175.26 cm Weight: 79.38 kg BSA: 1.95 m2 Heart Rate: 62 bpm BP: 100 / 60 mmHg Cocktail Server: ASIYA Referring MD: Kristopher Chairez MD Symptoms: I48.0 - Paroxysmal atrial fibrillation Study Quality: Fair ECG Rhythm: Sinus Conclusions: - The left ventricular systolic function is normal. The visually estimated ejection fraction is between 55-60%. - No obvious valvular pathology seen on this study. - Ascending aorta not well visualized. In some measurements, up to 4.9 cm but not clear if it is accurate or not. Consider CTA. Findings Left Ventricle Normal left ventricular cavity size. There is normal left ventricular wall thickness. The left ventricular systolic function is normal. The visually estimated ejection fraction is between 55-60%. There is no evidence of regional wall motion abnormalities. Diastolic function is normal for age. LV peak GLS -14.2%. Right Ventricle Normal right ventricular cavity size. There is low normal right ventricular systolic function. Atria Both atria are normal in size. Aortic Valve The aortic valve was not well visualized. There is no aortic valve stenosis. There is no aortic valve regurgitation. Mitral Valve The mitral valve appears normal. There is no mitral valve regurgitation. There is no mitral valve stenosis. Pulmonic Valve The pulmonic valve is likely normal. Tricuspid Valve There is no tricuspid valve regurgitation. Tricuspid regurgitation envelope is inadequate for calculation of right ventricular systolic pressure. Great Vessels Ascending aorta not well visualized. In some measurements, up to 4.9 cm but not clear if it is accurate or not. Consider CTA. Venous The inferior vena cava is normal in size and collapses greater than 50% with inspiration. Pericardium/Pleural Widened pericardial space, unable to distinguish between adipose tissue and effusion. Prior Study Comparison No prior study available for comparison. Recommendations, Care & Conclusions No obvious valvular pathology seen on this study. Measurements 2D Linear Measurements IVSd: 0.92 0.6-0.9/0.6-1.0 cm LVIDd: 4.97 3.9-5.3/4.2-5.9 cm LVIDd Index: 2.55 2.4-3.2/2.2-3.1 cm/m2 LVIDs: 3.06 2.0-3.6 cm LVPWd: 0.81 0.7-1.1 cm LA Diam: 2.40 2.7-3.8/3.0-4.0 cm LAIDs Index: 1.23 1.5-2.3 cm/m2 LV Mass: 185.54 67-162/88-224 g LV Mass Index: 95.15 43-95/49-115 g/m2 LVOT Diam: 2.50 3.0+(-)1.3 cm 2D Systolic Function EF 4C: 67.00 >55% EF 2C: 62.70 >55% EF BiP: 65.10 >55% Mitral Valve MV Pk E: 0.77 MV PK A: 0.61 MV Decel Time: 273.00 E/A: 1.30 E'Lateral: 9.57 E'Medial: 8.70 E/E' Med: 8.80 E/E' Lat: 8.00 PHT: 80.00 MVA PHT: 2.75 Decel [place]: 2.81 Aortic Valve AoV Pk Pardeep: 1.21 AoV Mn Pardeep: 0.81 AoV VTI: 0.26 AoV Pk Grad: 6.00 Aov Mn Grad: 3.00 AMANDA Cont.VTI: 4.33 LVOT LVOT Pk Pardeep: 1.03 LVOT Mn Pardeep: 0.71 LVOT VTI: 0.23 LVOT Pk Grad: 4.00 LVOT Mn Grad: 2.00 LVOT Diam: 2.50 LVOT Area: 4.91 Diastolic Function MV Pk E: 0.77 MV Pk A: 0.61 E/A: 1.30 E'Medial: 8.70 E/E' Med: 8.80 E' Laterial: 9.57 E/E' Lat: 8.00 Right Ventricle TAPSE (mm): 17.10 TVS' Pardeep: 9.46 Tricuspid Valve RA Press: 3.00 Great Vessels Aorta Sinus of Valsalva: 4.10 2.0-3.5 cm Ao Asc: 4.80 2.1-3.4 cm Pulmonary Valve PV Pk Pardeep: 0.86 Peak PV Grad: 3.00 Updated in Other Vendor System with Status of Final Randy Alexandre MD electronically signed on 10/21/2022 12:02:55 PM with status of Final
--- NOTE | 2022-10-19 12:51 | HM_ITS ---
Cardiac event monitor Indication: Paroxysmal atrial fibrillation Technique: Patient was worked up for cardiac event monitor for 30 days for starting on 10/19/2022. With time was only 1.7 days. Compliance rate was 55%. Findings: This was the abbreviated cardiac event monitor as the total weight time was only 1.7 days. Baseline was normal sinus rhythm. There were rare PACs noted. No episodes of atrial fibrillation noted. Patient activated the symptom button twice but only reported 1 symptom of chest tightness which correlated with sinus rhythm Conclusion: 1. Abbreviated cardiac event monitor for 1.7 days 2. Baseline was normal sinus rhythm with rare PACs 3. No significant atrial fibrillation noted 4. Patient reported symptom of chest pain correlated with sinus rhythm MTDD
== END ==
LOC: HO.CARD 12:48
PROVIDERS: PCP Nurse Practitioner Family; Visit Provider Internal Medicine Cardiovascular Disease
DX: I48.0 Paroxysmal atrial fibrillation (principal)
CPT/HCPCS: 93270; 93306; 93356

== ENCOUNTER 2022-10-26 12:14 | Day surgery (SDC) | payer MEDICARE, MEDICAID, SELFPAY ==
--- NOTE | 2022-10-25 11:59 | HO.ANESPROP2 ---
HPI - Anesthesia Eval Consult details Narrative: 62yo M for Bronchoscopy Fiberoptic with biopsy Previously cx'd 10/05/22 d/t new onset rapid afib. Sent to ER. Consult by cardiology states that he should undergo bronch and will do cardiac w/u outpatient. Was discharged home same day after spontaneously converst to [place] [facility] Past Medical History Medical History Abnormal liver function Chronic back pain Chronic hip pain COPD (chronic obstructive pulmonary disease) Depression screening H/O ETOH abuse Hematochezia Prostate troubles Tobacco use Family History Family history of problems with anesthesia: No Surgical History Surgical History H/O foot surgery History of Problems with Anesthesia: Yes (Difficulty breathing waking up from anesthesia. Needed oxygen ) Social History Social History Patient Tobacco Use Status: Current everyday Tobacco user Tobacco use type: Cigarette Cigarettes Per Day: 7 Second Hand Smoke Exposure: No Meds Allergies Allergy/AdvReac Type Severity Reaction Status Date / Time Penicillins [PCN] Allergy Unknown Verified 10/04/22 10:47 Home Medications Medication Instructions Recorded Confirmed Last Taken Type acetylcysteine 600 mg capsule 600 mg PO BID 10/04/22 10/04/22 Unknown History albuterol sulfate 90 mcg/actuation 2 puff inhalation Q3H PRN dyspnea 10/04/22 10/04/22 10/05/22 History aerosol inhaler (Ventolin HFA) azithromycin 250 mg tablet 250 mg PO DAILY 10/04/22 10/04/22 Unknown History budesonide-formoterol HFA 160 2 puff inhalation BID 10/04/22 10/04/22 10/05/22 History mcg-4.5 mcg/actuation aerosol inhaler (Symbicort) cholecalciferol (vitamin D3) 50 50 mcg PO DAILY 10/04/22 10/04/22 Unknown History mcg (2,000 unit) capsule fluticasone propionate 50 1 spray intranasal DAILY 10/04/22 10/04/22 10/05/22 History mcg/actuation nasal spray,suspension ipratropium 20 mcg-albuterol 100 1 puff inhalation 8XD sob 10/04/22 10/05/22 10/05/22 History mcg/actuation mist for inhalation (Combivent Respimat) lisinopril 2.5 mg tablet 2.5 mg PO DAILY 10/04/22 10/04/22 Unknown History metoprolol succinate 25 mg 25 mg PO DAILY 10/04/22 10/04/22 10/05/22 History tablet,extended release 24 hr nicotine 21 mg/24 hr daily 1 patch topical DAILY 10/04/22 10/04/22 Unknown History transdermal patch prednisone 10 mg tablet 10 mg PO BID 10/04/22 10/04/22 Unknown History roflumilast 500 mcg tablet mcg PO 10/04/22 10/05/22 History tiotropium bromide 18 mcg capsule 1 cap inhalation DAILY 10/04/22 10/04/22 10/05/22 History with inhalation device (Spiriva with HandiHaler) topiramate 25 mg tablet 25 mg PO BID 10/04/22 10/04/22 10/05/22 History Exam Exam Date and Time: October 25, 2022 1159 Pertinent Lab Results Pertinent Lab Results: Laboratory Tests 10/05/22 10/05/22 15:12 15:12 WBC 8.1 Hgb 14.6 Hct 44.0 Plt Count 227 Sodium 142 Potassium 4.4 Chloride 105 Carbon Dioxide 29 BUN 11 Creatinine 0.72 Narrative Narrative: EKG 09/2022 Vent. Rate : 076 BPM ? ? Atrial Rate : 076 BPM ?? P-R Int : 162 ms? QRS Dur : 082 ms ? ? QT Int : 368 ms ? ? ? P-R-T Axes : 078 112 047 degrees ?? QTc Int : 414 ms ? Normal sinus rhythm Possible Left atrial enlargement Right axis deviation Septal infarct (cited on or before 05-OCT-2022) Abnormal ECG When compared with ECG of 05-OCT-2022 13:51, Sinus rhythm has replaced Atrial fibrillation Questionable change in initial forces of Anterior leads Nonspecific T wave abnormality no longer evident in Inferior leads ECHO 09/2022 Conclusions: - The left ventricular systolic function is normal.? The visually estimated ejection fraction is between 55-60%. ? - No obvious valvular pathology seen on this study.? - Ascending aorta not well visualized.? In some measurements, up to 4.9 cm but not clear if it is accurate or not.? Consider CTA. Assessment and Plan Assessment Anesthesia Assessment: Chart Reviewed Final Anesthetic Review Family History of Problems with Anesthesia: No History of Problems with Anesthesia: Yes (Difficulty breathing waking up from anesthesia. Needed oxygen )
[2022-10-26] VITALS (9 sets, daily range): BP systolic 111–140; BP diastolic 68–80; PULSE 72–90; RESP 16–22; TEMP 36.2–36.9; O2SAT 94–98; BMI 25.8
--- OUTSIDE RECORDS SUMMARY | 2022-10-26 12:16 | XMS_ITS | Continuity of Care Document ---
Author Name Unknown Organization [facility] Address [address], [address] [place] [address]- Care Team Providers Care Visual Merchandiser Name Role Phone Not on Staff, PCP Primary Care Physician Unavail able Encounter 09/06/22 - 10/13/22 [facility] [address] [facility], [address] [place] [address]- Attending Physician: Vinay Deal MD Admitting Physician: Vinay Deal MD Referring Physician: Vinay Deal MD Allergies, Adverse Reactions, Alerts Substance Reaction Severity Status penicillin Active Immunizations Given and Recorded Vaccine Date Status Refusal Reason pneumococcal 23-valent vaccine 1 03/04/18 Given influenza virus vaccine, inactivated 2 03/20/12 Gi vandana tetanus/diphtheria/pertussis, acel(Tdap) 12/23/11 Given 1Result Comment: [id number] 04/23/2019 2Admin Note: vis 7-7-12 Medications lisinopril [...] on: 08/14/16 Sex Patient Care team information Care Team Personnel Name: Brittany Sanchez RN Position: [facility] SN Edger Operator Member Role: Primary Care Nurse Name: Isatu Albert MD Position: [facility] Outreach Member Role: Lifetime Consulting Physician Address: Address: [address] [place] [id number] Name: Not on Staff, PCP Position: [facility] Physician (General Medicine) Member Role: PCP Care Team Related Persons Name: ANITA HUNG Address: [address] [place] [address] Name: DAVID HUNG Address: [address] [place] [address]
[2022-10-26] MEDS: Lactated Ringers 1,000 ML 100 ML IVCONT (13:13)
--- NOTE | 2022-10-26 15:30 | MHC.SHP ---
Pre-Procedural Eval Section A Date of Service: 10/26/22 Section B Chief Complaint: Solitary pulmonary nodule Allergies: Allergies Allergy/AdvReac Type Severity Reaction Status Date / Time Penicillins [PCN] Allergy Unknown Verified 10/04/22 10:47 Plan I have reviewed the history and physical and performed a pertinent physical examination on my patient. No changes have occurred unless specified. Time Spent With Patient Time: Total time managing care of this patient today ____ minutes.
--- NOTE | 2022-10-26 16:07 | W.PM.OPN ---
Operative Note Operative Note Date of Service: 10/26/22 Narrative: Preoperative diagnosis: Left upper lobe lung mass Postoperative diagnosis: Same Operation: bronchoscopy with endobronchial biopsies, brushings, and bronchoalveolar lavage left upper lobe Surgeon: Garcia Isbell MD Anesthesia: General Specimens: endobronchial biopsies, brushings, and lavage left upper lobe bronchial orifice EBL: 10 cc Operation in detail: The patient was brought to the operating room, placed supine on the operative table, anesthesia monitor devices were placed, and the patient was intubated with an 8 and half endotracheal tube. A time-out was performed confirming the correct patient, site, and procedure. The bronchoscopedwas then inserted through the endotracheal tube and the airways were visualized down to the subsegmental level bilaterally. Findings are no endobronchial lesions or secretions with the exception of the orifice of the left upper lobe which I could not pass with the scope into the left upper lobe. The mass was at the secondary rylie between the left upper lobe and left lower lobe and was injected and erythematous. -drove the scope chest above the endobronchial mass described above and using grasper forceps 3 by a see samples were taken from the secondary rylie and sent to pathology and permanent section. A protected brushing was then done and placed down into the left upper lobe bronchus and these were sent to cytology. Saline washings and lavage was done with 120 cc collected in 2 separate Lukens traps for cytology, culture, fungus, and AFB. At the conclusion of the procedure hemostasis was assured with ice cold saline. Hemostasis was then assured in the bronchoscope was removed. The patient tolerated the procedure well, was extubated in the operating room, and brought to the PACU in stable condition.
--- NOTE | 2022-10-26 16:33 | P.CONAN_ITS ---
[facility] Past Medical History Medical History Abnormal liver function Chronic back pain Chronic hip pain COPD (chronic obstructive pulmonary disease) Depression screening H/O ETOH abuse Hematochezia Prostate troubles Tobacco use Family History Family history of problems with anesthesia: No Surgical History Surgical History H/O foot surgery History of Problems with Anesthesia: Yes (Difficulty breathing waking up from anesthesia. Needed oxygen ) Social History Social History Patient Tobacco Use Status: Current everyday Tobacco user Tobacco use type: Cigarette Cigarettes Per Day: 7 Second Hand Smoke Exposure: No Use of substances other than those prescribed or required for medical reasons: No Are you DNR?: No Advance Directives: No Advance Directives Information Provided: Yes Advance Directives on File: No Meds Allergies Allergy/AdvReac Type Severity Reaction Status Date / Time Penicillins [PCN] Allergy Unknown Verified 10/04/22 10:47 Active Medications: Current Medications Lactated Ringer's (Lr) 1,000 mls @ 100 mls/hr IVCONT .Q10H STEVE Last Admin: 10/26/22 13:13 Dose: 100 mls/hr Home Medications Medication Instructions Recorded Confirmed Last Taken Type acetylcysteine 600 mg capsule 600 mg PO BID 10/04/22 10/04/22 Unknown History albuterol sulfate 90 mcg/actuation 2 puff inhalation Q3H PRN dyspnea 10/04/22 10/04/22 10/05/22 History aerosol inhaler (Ventolin HFA) azithromycin 250 mg tablet 250 mg PO DAILY 10/04/22 10/04/22 Unknown History budesonide-formoterol HFA 160 2 puff inhalation BID 10/04/22 10/04/22 10/05/22 History mcg-4.5 mcg/actuation aerosol inhaler (Symbicort) cholecalciferol (vitamin D3) 50 50 mcg PO DAILY 10/04/22 10/04/22 Unknown History mcg (2,000 unit) capsule fluticasone propionate 50 1 spray intranasal DAILY 10/04/22 10/04/22 10/05/22 History mcg/actuation nasal spray,suspension ipratropium 20 mcg-albuterol 100 1 puff inhalation 8XD sob 04/12/2110/05/22 10/05/22 History mcg/actuation mist for inhalation (Combivent Respimat) lisinopril 2.5 mg tablet 2.5 mg PO DAILY 10/04/22 10/04/22 Unknown History metoprolol succinate 25 mg 25 mg PO DAILY 10/04/22 10/04/22 10/05/22 History tablet,extended release 24 hr nicotine 21 mg/24 hr daily 1 patch topical DAILY 10/04/22 10/04/22 Unknown History transdermal patch prednisone 10 mg tablet 10 mg PO BID 10/04/22 10/04/22 Unknown History roflumilast 500 mcg tablet mcg PO 10/04/22 10/05/22 History tiotropium bromide 18 mcg capsule 1 cap inhalation DAILY 10/04/22 10/04/22 10/05/22 History with inhalation device (Spiriva with HandiHaler) topiramate 25 mg tablet 25 mg PO BID 10/04/22 10/04/22 10/05/22 History Exam Exam Date and Time: October 26, 2022 163 Height,Weight and Vital Signs: Height 5 ft 9 in Weight 79.379 kg Last Vital Signs Temp 97.2 F 10/26/22 16:23 Pulse 87 10/26/22 16:28 Resp 22 H 10/26/22 16:28 BP 131/71 10/26/22 16:28 Pulse Ox 94 10/26/22 16:28 O2 Del Method Humidified O2, Shovel Mask 10/26/22 16:28 O2 Flow Rate 8 10/26/22 16:23 Airway Mallampati Class: II TM Dist: >3cm Neck ROM: Full Heart: RRR Lungs: wheezing bl. Assessment and Plan Final Anesthetic Review Family History of Problems with Anesthesia: No History of Problems with Anesthesia: Yes (Difficulty breathing waking up from anesthesia. Needed oxygen ) ASA Class: III Final Preanesthetic Review: Meds/Allgs Chart Reviewed, Consent Obtained/Reviewed and Anes Risks/Benef Reviewed Patient Risk: Intermediate Procedure Risk: Low Anesthetic Plan Anesthetic Plan: GA Disposition: Standard PACU
--- NOTE | 2022-10-26 16:38 | HO.POSTANES ---
Post Anesthesia Evaluation Post Anesthesia Evaluation Vital Signs: Vital Signs Temp Pulse Resp BP Pulse Ox O2 Del Method O2 Flow Rate 10/26/22 16:31 89 19 10/26/22 16:33 87 22 H 96 Humidified O2, Shovel Mask 10/26/22 16:28 87 22 H 131/71 94 Humidified O2, Shovel Mask 10/26/22 16:23 97.2 F 85 22 H 118/72 94 Shovel Mask 8 10/26/22 13:05 98.4 F 72 16 111/68 98 Room Air Anesthesia: General Endotracheal-GETA Mental Status: Awake Pain Control: Satisfactory Nausea/Vomiting: None Hydration: Adequate Anesthesia-Related Issues: No Anes. Related Issues
--- NOTE | 2022-10-26 16:57 | PC.NURSE ---
per dr. porter lung sounds improved following updraft treatment patient may d/d/ to home if stable off 02
== END 2022-10-26 17:26 | disposition home or self-care (01) ==
PROVIDERS: PCP Nurse Practitioner Family; Visit Provider Surgery
PROC: 0BJ08ZZ Inspection of Tracheobronchial Tree, Via Natural or Artificial Opening Endoscopic (ICD-10-PCS; CPT 31622; principal; 2022-10-26 14:20)
DX: C34.12 Malignant neoplasm of upper lobe, left bronchus or lung (principal); R91.1 Solitary pulmonary nodule; I10 Essential (primary) hypertension; J44.9 Chronic obstructive pulmonary disease, unspecified; K92.1 Melena; R94.5 Abnormal results of liver function studies; G89.29 Other chronic pain; M54.9 Dorsalgia, unspecified; M25.559 Pain in unspecified hip; N42.9 Disorder of prostate, unspecified; Z79.51 Long term (current) use of inhaled steroids; Z79.899 Other long term (current) drug therapy; Z88.0 Allergy status to penicillin; F10.11 Alcohol abuse, in remission; F17.210 Nicotine dependence, cigarettes, uncomplicated
CPT/HCPCS: 31625; 31624; 31623; 36415; 87070; 87077; 87102; 87116; 87186; 87205; 87206; 88112; 88305; 88341; 88342; 88360; 94640; J0171; J1100; J2250; J2405; J3010

== ENCOUNTER → 2022-12-27 14:30 | Outpatient (BNVA) | payer MEDICARE, MEDICAID, SELFPAY | PROVIDERS: PCP Nurse Practitioner Family; Visit Provider Nurse Practitioner Family | DX: Z09 Encounter for follow-up examination after completed treatment for conditions other than malignant neoplasm (principal); I48.91 Unspecified atrial fibrillation; I48.92 Unspecified atrial flutter; R06.02 Shortness of breath; R93.1 Abnormal findings on diagnostic imaging of heart and coronary circulation; C34.90 Malignant neoplasm of unspecified part of unspecified bronchus or lung; Z72.0 Tobacco use | CPT/HCPCS: 93005; 99212 ==

== ENCOUNTER → 2023-01-30 10:02 | Outpatient (BNVA) | payer MEDICARE, MEDICAID, SELFPAY | PROVIDERS: PCP Nurse Practitioner Family; Referring Provider Nurse Practitioner Family; Visit Provider Nurse Practitioner Family | DX: I48.91 Unspecified atrial fibrillation (principal) | CPT/HCPCS: 93005 ==

== ENCOUNTER 2023-01-30 10:03 | Outpatient (AMB) | payer MEDICARE, MEDICAID, SELFPAY ==
--- OUTSIDE RECORDS SUMMARY | 2023-01-30 10:04 | XMS_ITS | Continuity of Care Document ---
Author Name Unknown Organization [facility] Thoracic [facility] Address [address] [place] [address] mikayla, [address] [place] [address]- Care Team Providers Care Dry Cleaning Teacher Name Role Phone Not on Staff, PCP Primary Care Physician Unavail able Encounter [facility] [place] Date(s): 10/29/22 - 11/05/22 [facility] Thoracic Surgery [address] [place] [address], [address] [place], [place] [address] Attending Physician: Mejia Coker DO Referring Physician: Candice German NP Allergies, Adverse Reactions, Alerts Substance Reaction Severity Status penicillin Active Immunizations Given and Recorded Vaccine Date Status Refusal Reason pneumococcal 23-valent vaccine 1 03/04/18 Given influenza virus vaccine, inactivated 2 03/20/12 Gi vandana tetanus/diphtheria/pertussis, acel(Tdap) 12/23/11 Given 1Result Comment: [id number] 04/23/2019 2Admin Note: vis 7-7-12 Medications Albuterol 0.083% inhalation lashawn Refills 0, Maintenance, 10/29/22 13:05:00 EDT Start Date: 10/29/22 Status: Ordered Combivent Respimat 20 mcg-100 mcg/inh inhalation aerosol 1 puffs, Inhalation, 4 times a day, 0 Refills, Maintenance, 10/29/22 13:04:00 EDT, Partial fill upon patient request if the prescription is for a schedule II opioid drug. Start Date: 10/29/22 Status: Ordered lisinopril 5 mg oral tablet 5 mg, 1, tablet, By Mouth, Daily, Maintenance, 02/26/18 8:35:18 EDT Start Date: 02/26/18 Status: Ordered metoprolol 25 mg oral tablet, extended release 25 mg, 1, tablet, By Mouth, Daily, Refills 0, Maintenance, 08/14/16 13:11:12 Start Date: 08/14/16 Status: Ordered metoprolol 50 mg oral tablet 50 mg, 1, tablet, By Mouth, 2 times a day, Refills 0, Maintenance, 10/29/22 13:04:00 EDT, Partial fill upon patient request if the prescription is for a schedule II opioid drug. Start Date: 10/29/22 Status: Ordered nicotine 21 mg/24 hr transdermal [...] EDT, Aerosol Start Date: 03/04/18 Status: Ordered Symbicort 160mcg/4.5mcg Inhaler 2, puffs, Inhalation, 2 times a day, Refills 0, Maintenance, 10/29/22 13:05:00 EDT Start Date: 10/29/22 Status: Ordered Ventolin 90 mcg Inhaler 2, [...] the right ankle and screws were placed. Vital Signs Most recent to oldest [Reference Range]: 1 2 Height 175 cm (10/29/22 4:06 PM) 175 cm (10/29/22 12:56 PM) Weight 78.6 kg (10/29/22 4:06 PM) 78.6 kg (10/29/22 12:56 PM) Oxygen Saturation [94-100 %] 94 % (10/29/22 12:56 PM) Pulse Rate [55-90 bpm] 76 bpm (10/29/22 12:56 PM) Body Mass Index [18.5-24.99 kg/m2] 25.67 kg/m2 *H* (10/29/22 12:56 PM) Blood Pressure [90-138/55-84 mm Hg] 118/ 88mm Hg (10/29/22 12:56 PM) Respiratory Rate [16-30 br/min] 16 br/mi n (10/29/22 12:56 PM) Temperature [96.8-100.4 DegF] 98.5 DegF (10/29/22 12:56 PM) Mode of Delivery (Oxygen) Room air (10/29/22 12:56 PM) Blood pressure sites Arm, left (10/29/22 12:56 PM) Temperature Route Temporal (10/29/22 12:56 PM) Weight Obtained Via Standing scale (10/29/22 12:56 PM) Social History Social History Type Response Smoking Status Current every day sm oker; Tobacco user in household: No; Type: Cigarettes; Other: 1/2 ppd to 1ppd; entered on: 08/14/16 Sex Patient Care team information Care Team Personnel Name: Brittany Sanchez RN Position: [facility] SN Regulatory Affairs Specialist Member Role: Primary Care Nurse Name: Isatu Albert MD Position: [facility] Outreach Member Role: Lifetime Consulting Physician Address: Address: [address] [place] [id number] Name: Not on Staff, PCP Position: [facility] Physician (General Medicine) Member Role: PCP Care Team Related Persons Name: VINCENZOELVISEFRAÍN PITTSY Address: home [address] [place] [address] Name: RIKGISSELLENATALIEIE Address: home [address] [place] [address]
--- OUTSIDE RECORDS SUMMARY | 2023-01-30 10:04 | XMS_ITS | Continuity of Care Document ---
Author Name Unknown Organization [facility] ter Address [address] [place] [address]- Care Team Providers Care Prospecting Driller Name Role Phone Not on Staff, PCP Primary Care Physician Unavail able Encounter [facility] Date(s): 11/14/22 - 12/16/[address] [address]- Attending Physician: Mejia Coker DO Admitting Physician: Mejia Coker DO Allergies, Adverse Reactions, Alerts Substance Reaction Severity Status penicillin Active Immunizations Given and Recorded Vaccine Date Status Refusal Reason pneumococcal 23-valent vaccine 1 03/04/18 Given influenza virus vaccine, inactivated 2 03/20/12 Gi vandana tetanus/diphtheria/pertussis, acel(Tdap) 12/23/11 Given 1Result Comment: [id number] 04/23/2019 2Admin Note: vis 7-7-12 Medications Albuterol [...] Team Personnel Name: Brittany Sanchez RN Position: [facility] SN Mailroom Coordinator Member Role: Primary Care Nurse Name: Isatu Albert MD Position: [facility] Outreach Member Role: Lifetime Consulting Physician Address: Address: [address] [place] [address], [address] Name: Not on Staff, PCP Position: [facility] Physician (General Medicine) Member Role: PCP Name: Brando Torrez RN Position: [facility] RN Member Role: Primary Care Nurse Care Team Related Persons Name: ANITA HUNG Address: home [address] [place] [address] Name: DAVID HUNG Address: home [address] [place] [address]
--- OUTSIDE RECORDS SUMMARY | 2023-01-30 10:04 | XMS_ITS | Continuity of Care Document ---
Author Name Unknown Organization [facility] Thoracic [facility] Address [address] [place] [address] mikayla, [address] [place] [address]- Care Team Providers Care Internet Marketer Name Role Phone Not on Staff, PCP Primary Care Physician Unavail able [place] [facility] [place] 11/06/22 - 11/13/22 [facility] Thoracic Surgery [address] [place] [address], [address] [place], [place] [address] Attending Physician: Mejia Coker DO Allergies, Adverse Reactions, Alerts Substance Reaction Severity Status penicillin Active Immunizations Given and Recorded Vaccine Date Status Refusal Reason pneumococcal 23-valent vaccine 1 03/04/18 Given influenza virus vaccine, inactivated 2 03/20/12 Gi vandana tetanus/diphtheria/pertussis, acel(Tdap) 12/23/11 Given 1Result Comment: [id number] 04/23/2019 2Admin Note: vis 7-7-12 Medications Albuterol [...] Team Personnel Name: Brittany Sanchez RN Position: [facility] SN Rebar Bender Member Role: Primary Care Nurse Name: Isatu Albert MD Position: [facility] Outreach Member Role: Lifetime Consulting Physician Address: Address: [address] [place] [address], [address] Name: Not on Staff, PCP Position: [facility] Physician (General Medicine) Member Role: PCP Care Team Related Persons Name: RIKGISSELLEANITA Address: home [address] [place] [id number] Name: DAVID HUNG Address: home [address] [place] [address]
--- OUTSIDE RECORDS SUMMARY | 2023-01-30 10:04 | XMS_ITS | Continuity of Care Document ---
Author Name Unknown Organization [facility] ter Address [address] [place] [address]- Care Team Providers Care Instruments Sales Representative Name Role Phone Not on Staff, PCP Primary Care Physician Unavail able Encounter [facility] [place] Date(s): 11/09/22 - 12/23/[address] [address]- Attending Physician: Mejia Coker DO Admitting Physician: Mejia Coker DO Referring Physician: Mejia Coker DO Allergies, Adverse Reactions, Alerts Substance Reaction Severity Status penicillin Active Immunizations Given and Recorded Vaccine Date Status Refusal Reason pneumococcal 23-valent vaccine 1 03/04/18 Given influenza virus vaccine, inactivated 2 03/20/12 Gi vandana tetanus/diphtheria/pertussis, acel(Tdap) 12/23/11 Given 1Result Comment: [id number] 04/23/2019 2Admin Note: vis 7-7-12 Medications Albuterol [...] Team Personnel Name: Brittany Sanchez RN Position: [facility] SN Cassandra Developer Member Role: Primary Care Nurse Name: Isatu Albert MD Position: [facility] Outreach Member Role: Lifetime Consulting Physician Address: Address: [address] [place] [address] Name: Not on Staff, PCP Position: [facility] Physician (General Medicine) Member Role: PCP Name: Brando Torrez RN Position: [facility] RN Member Role: Primary Care Nurse Care Team Related Persons Name: ANITA HUNG Address: home [address] [place] [address] Name: DAVID HUNG Address: home [address] [place] [address]
--- OUTSIDE RECORDS SUMMARY | 2023-01-30 10:04 | XMS_ITS | Continuity of Care Document ---
Author Name Unknown Organization [facility] Thoracic [facility] Address [address] [place] [address] [address], [address] [place] [address]- Care Team Providers Care Tire Design Engineer Name Role Phone Not on Staff, PCP Primary Care Physician Unavail able Encounter [facility] Date(s): 11/13/22 - 12/13/22 [facility] Thoracic Surgery [address] [place] [address], [address] [place], [place] [address] Allergies, Adverse Reactions, Alerts Substance Reaction Severity Status penicillin Active Immunizations Given and Recorded Vaccine Date Status Refusal Reason pneumococcal 23-valent vaccine 1 03/04/18 Given influenza virus vaccine, inactivated 2 03/20/12 Gi vandana tetanus/diphtheria/pertussis, acel(Tdap) 12/23/11 Given 1Result Comment: [id number] 04/23/2019 2Admin Note: vis 7-7-12 Medications Albuterol [...] Team Personnel Name: Brittany Sanchez RN Position: [facility] SN Lock Installer Member Role: Primary Care Nurse Name: Isatu Albert MD Position: [facility] Outreach Member Role: Lifetime Consulting Physician Address: Address: [address] [place] [address], [address] Name: Not on Staff, PCP Position: [facility] Physician (General Medicine) Member Role: PCP Name: Brando Torrez RN Position: [facility] RN Member Role: Primary Care Nurse Care Team Related Persons Name: ANITA HUNG Address: home [address] [place] [id number] Name: DAVID HUNG Address: [address] [place] [address]
--- OUTSIDE RECORDS SUMMARY | 2023-01-30 10:04 | XMS_ITS | Continuity of Care Document ---
Author Name Unknown Organization [facility] Thoracic [facility] Address [address] [place] [address] [address], [address] [place] [address]- Care Team Providers Care Cook Relief Name Role Phone Not on Staff, PCP Primary Care Physician Unavail able Encounter [facility] Date(s): 10/03/22 - 11/02/22 [facility] Thoracic Surgery [address] [place] [address], [address] [place], [place] [address] Allergies, Adverse Reactions, Alerts Substance Reaction Severity Status penicillin Active Immunizations Given and Recorded Vaccine Date Status Refusal Reason pneumococcal 23-valent vaccine 1 03/04/18 Given influenza virus vaccine, inactivated 2 03/20/12 Gi vandana tetanus/diphtheria/pertussis, acel(Tdap) 12/23/11 Given 1Result Comment: [id number] 04/23/2019 2Admin Note: vis 7-7-12 Medications Albuterol [...] team information Care Team Personnel Name: Brittany Snachez RN Position: [facility] SN Web Site Manager Member Role: Primary Care Nurse Name: Isatu Albert MD Position: [facility] Outreach Member Role: Lifetime Consulting Physician Address: Address: [address] [place] [address], [address] Name: Not on Staff, PCP Position: [facility] Physician (General Medicine) Member Role: PCP Care Team Related Persons Name: EFRAÍN HUNGY Address: [address] [place] [address] Name: RIKGISSELLEDAVID Address: [address] [place] [address]
--- OUTSIDE RECORDS SUMMARY | 2023-01-30 10:04 | XMS_ITS | Continuity of Care Document ---
Author Name Unknown Organization [facility] Thoracic [facility] Address [address] [place] [address] [address], [address] [place] [address]- Care Team Providers Care Motor Vehicle Or Caravan Salesperson Name Role Phone Not on Staff, PCP Primary Care Physician Unavail able Encounter [facility] [place] Date(s): 11/15/22 - 12/15/22 [facility] Thoracic Surgery [address] [place] [address], [address] [place], [place] [address] Allergies, Adverse Reactions, Alerts Substance Reaction Severity Status penicillin Active Immunizations Given and Recorded Vaccine Date Status Refusal Reason pneumococcal 23-valent vaccine 1 03/04/18 Given influenza virus vaccine, inactivated 2 03/20/12 Gi vandana tetanus/diphtheria/pertussis, acel(Tdap) 12/23/11 Given 1Result Comment: [id number] 04/23/2019 2Admin Note: vis 7-7-12 Medications Albuterol [...] Team Personnel Name: Brittany Sanchez RN Position: [facility] SN Hot Molder Member Role: Primary Care Nurse Name: Isatu Albert MD Position: [facility] Outreach Member Role: Lifetime Consulting Physician Address: Address: [address] [place] [address], [address] Name: Not on Staff, PCP Position: [facility] Physician (General Medicine) Member Role: PCP Name: Brando Torrez RN Position: [facility] RN Member Role: Primary Care Nurse Care Team Related Persons Name: ANITA HUNG Address: home [address] [place] [address] Name: DAVID HUNG Address: [address] [place] [address]
--- OUTSIDE RECORDS SUMMARY | 2023-01-30 10:04 | XMS_ITS | Continuity of Care Document ---
Author Name Unknown Organization [facility] Thoracic [facility] Address [address] [place] [address] mikayla, [address] [place] [address]- Care Team Providers Care Lead Mobile Developer Name Role Phone Not on Staff, PCP Primary Care Physician Unavail able Encounter [facility] [place] Date(s): 12/03/22 - 01/02/23 [facility] Thoracic Surgery [address] [place] [address], [address] [place], [place] [address] Attending Physician: Manoj San Admitting Physician: Manoj San Referring Physician: AdmtrManoj Allergies, Adverse Reactions, Alerts Substance Reaction Severity Status penicillin Active Immunizations Given and Recorded Vaccine Date Status Refusal Reason pneumococcal 23-valent vaccine 1 03/04/18 Given influenza virus vaccine, inactivated 2 03/20/12 Gi vandana tetanus/diphtheria/pertussis, acel(Tdap) 12/23/11 Given 1Result Comment: [id number] 04/23/2019 2Admin Note: vis 7--12 Medications Albuterol 0.083% inhalation lashawn Refills 0, [...] Team Personnel Name: Brittany Sanchez RN Position: [facility] SN Motor And Generator Brush Cutter Member Role: Primary Care Nurse Name: Isatu Albert MD Position: [facility] Outreach Member Role: Lifetime Consulting Physician Address: Address: [address] [place] [address] Name: Not on Staff, PCP Position: [facility] Physician (General Medicine) Member Role: PCP Name: Brando Torrez RN Position: [facility] RN Member Role: Primary Care Nurse Care Team Related Persons Name: ANABELL ANITA Address: home [address] [place] [address] Name: DAVID HUNG Address: home [address] [place] [address]
--- OUTSIDE RECORDS SUMMARY | 2023-01-30 10:04 | XMS_ITS | Continuity of Care Document ---
Author Name Unknown Organization [facility] Address [address] [place] [address]- Care Team Providers Care Edge Beader Name Role Phone Not on Staff, PCP Primary Care Physician Unavail able Encounter [facility] [place] Date(s): 11/07/22 - 12/07/22 [facility] [address] [place] [address]- Attending Physician: Manoj San Admitting Physician: Manoj San Referring Physician: AdmManoj cardona Allergies, Adverse Reactions, Alerts Substance Reaction Severity Status penicillin Active Immunizations Given and Recorded Vaccine Date Status Refusal Reason pneumococcal 23-valent vaccine 1 03/04/18 Given influenza virus vaccine, inactivated 2 03/20/12 Gi vandana tetanus/diphtheria/pertussis, acel(Tdap) 12/23/11 Given 1Result Comment: [id number] 04/23/2019 2Admin Note: vis 7-7-12 Medications Albuterol [...] Team Personnel Name: Brittany Sanchez RN Position: [facility] SN Equity Trader Member Role: Primary Care Nurse Name: Isatu Albert MD Position: [facility] Outreach Member Role: Lifetime Consulting Physician Address: Address: [address] [place] [address] Name: Not on Staff, PCP Position: [facility] Physician (General Medicine) Member Role: PCP Name: Brando Torrez RN Position: [facility] RN Member Role: Primary Care Nurse Care Team Related Persons Name: ANABELLANITA Address: home [address] [place] [address] Name: DAVID HUNG Address: home [address] [place] [address]
--- OUTSIDE RECORDS SUMMARY | 2023-01-30 10:04 | XMS_ITS | Continuity of Care Document ---
Author Name Unknown Organization [facility] Address [address] [place] [address]- Care Team Providers Care Pattern Designer Name Role Phone Not on Staff, PCP Primary Care Physician Unavail able Encounter [facility] [place] Date(s): 10/30/22 - 12/14/[address] [address]- Attending Physician: Mani Pederson MD Admitting Physician: Mani Pederson MD Referring Physician: Mejia Coker DO Allergies, Adverse Reactions, Alerts Substance Reaction Severity Status penicillin Active Immunizations Given and Recorded Vaccine Date Status Refusal Reason pneumococcal 23-valent vaccine 1 03/04/18 Given influenza virus vaccine, inactivated 2 03/20/12 Gi vandana tetanus/diphtheria/pertussis, acel(Tdap) 12/23/11 Given 1Result Comment: [id number] 04/23/2019 2Admin Note: vis 7-7-12 Medications Albuterol [...] Team Personnel Name: Brittany Sanchez RN Position: [facility] SN Radiation Therapist Member Role: Primary Care Nurse Name: Isatu Albert MD Position: [facility] Outreach Member Role: Lifetime Consulting Physician Address: Address: [address] [place] [address] Name: Not on Staff, PCP Position: [facility] Physician (General Medicine) Member Role: PCP Name: Brando Torrez RN Position: [facility] RN Member Role: Primary Care Nurse Care Team Related Persons Name: ANTIA HUNG Address: home [address] [place] [address] Name: DAVID HUNG Address: home [address] [place] [address]
--- OUTSIDE RECORDS SUMMARY | 2023-01-30 10:04 | XMS_ITS | Continuity of Care Document ---
Author Name Unknown Organization [facility] Address [address] [place] [address] [address], [address] [place] [address]- Care Team Providers Care Truck Guard Name Role Phone Not on Staff, PCP Primary Care Physician Unavail able Encounter [facility] [place] Date(s): 11/08/22 - 01/02/23 [facility] [address] [place] [address], [address] [place], [place] [address] Attending Physician: Mejia Coker DO Allergies, Adverse Reactions, Alerts Substance Reaction Severity Status penicillin Active Immunizations Given and Recorded Vaccine Date Status Refusal Reason pneumococcal 23-valent vaccine 1 03/04/18 Given influenza virus vaccine, inactivated 2 03/20/12 Gi vandana tetanus/diphtheria/pertussis, acel(Tdap) 12/23/11 Given 1Result Comment: [id number] 04/23/2019 2Admin Note: vis 7--12 Medications Albuterol [...] Team Personnel Name: Brittany Sanchez RN Position: [facility] SN Dowel Setting Machine Operator Member Role: Primary Care Nurse Name: Isatu Albert MD Position: [facility] Outreach Member Role: Lifetime Consulting Physician Address: Address: [address] [place] [address] Name: Not on Staff, PCP Position: [facility] Physician (General Medicine) Member Role: PCP Name: Brando Torrez RN Position: [facility] RN Member Role: Primary Care Nurse Care Team Related Persons Name: RIKGISSELLEANITA Address: home [address] [place] [id number] Name: DAVID HUNG Address: home [address] [place] [address]
--- OUTSIDE RECORDS SUMMARY | 2023-01-30 10:04 | XMS_ITS | Continuity of Care Document ---
Author Name Unknown Organization [facility] Address [address] [place] [address] [address], [address] [place] [address]- Care Team Providers Care Director E Learning Name Role Phone Not on Staff, PCP Primary Care Physician Unavail able [place] [facility] [place]10/22 [facility] [address] [place] [address], [address] [place], [place] [address] Allergies, Adverse Reactions, Alerts Substance Reaction Severity Status penicillin Active Immunizations Given and Recorded Vaccine Date Status Refusal Reason pneumococcal 23-valent vaccine 1 03/04/18 Given influenza virus vaccine, inactivated 2 03/20/12 Gi vandana tetanus/diphtheria/pertussis, acel(Tdap) 12/23/11 Given 1Result Comment: [id number] 04/23/2019 2Admin Note: vis 7-7-12 Medications Albuterol [...] Team Personnel Name: Brittany Snachez RN Position: [facility] SN Recovery Operator Helper Member Role: Primary Care Nurse Name: Isatu Albert MD Position: [facility] Outreach Member Role: Lifetime Consulting Physician Address: Address: [address] [place] [address], [address] Name: Not on Staff, PCP Position: [facility] Physician (General Medicine) Member Role: PCP Care Team Related Persons Name: EFRAÍN HUNGY Address: [address] [place] [address] Name: RIKGISSELLEDAVID Address: [address] [place] [address]
--- OUTSIDE RECORDS SUMMARY | 2023-01-30 10:04 | XMS_ITS | Continuity of Care Document ---
Author Name Unknown Organization [facility] Address [address] [place] [address] [address]en degroot, [address] [place] [address]- Care Team Providers Care Licensed Bondsman Name Role Phone Not on Staff, PCP Primary Care Physician Unavail able Encounter [facility] Date(s): 10/25/22 - 11/24/22 [facility] [address] [place] [address], [address] [place], [place] [address] Allergies, Adverse Reactions, Alerts Substance Reaction Severity Status penicillin Active Immunizations Given and Recorded Vaccine Date Status Refusal Reason pneumococcal 23-valent vaccine 1 03/04/18 Given influenza virus vaccine, inactivated 2 03/20/12 Gi vandana tetanus/diphtheria/pertussis, acel(Tdap) 12/23/11 Given 1Result Comment: [id number] 04/23/2019 2Admin Note: vis 7-7-12 Medications Albuterol [...] Team Personnel Name: Brittany Sanchez RN Position: [facility] SN Wrapper Opener Member Role: Primary Care Nurse Name: Isatu Albert MD Position: [facility] Outreach Member Role: Lifetime Consulting Physician Address: Address: [address] [place] [address], [address] Name: Not on Staff, PCP Position: [facility] Physician (General Medicine) Member Role: PCP Name: Brando Trorez RN Position: [facility] RN Member Role: Primary Care Nurse Care Team Related Persons Name: ANITA HUNG Address: home [address] [place] [id number] Name: DAVID HUNG Address: home [address] [place] [address]
--- NOTE | 2023-01-30 10:38 | AM.OFFVISNUR ---
Intake Intake Visit Reasons: EKG-Afib Allergies Penicillins [PCN] Allergy (Verified 01/30/23 10:37) Unknown Nursing Note EKG completed. H/O AFib. EKG shows NSR w/ a heart rate of 73 bpm. Patient reports feeling good. EKG left on Marie Zoya desk for review. Office Procedures EKG [id number], Complete Coding Diagnoses CPT Codes EKG - CPT: 43079-[id number], Complete ([id number])
== END 2023-01-30 13:32 | disposition home or self-care (01) ==
PROVIDERS: PCP Nurse Practitioner Family; Referring Provider Nurse Practitioner Family; Visit Provider Nurse Practitioner Family
DX: R94.31 Abnormal electrocardiogram [ECG] [EKG] (principal)
CPT/HCPCS: 93010